=== PATIENT | male | born 1990 | race Caucasian/White ===

== ENCOUNTER 2024-11-08 22:38 | Emergency (ER) | payer SELFPAY ==
[2024-11-08 22:44] VITALS: RESP 18; BMI 16.2
[2024-11-08] MEDS ORDERED: FAMOTIDINE 20 MG/50 ML IVPB 20 MG/50 ML MG IVPB ONE (23:38)
[2024-11-08] MEDS ORDERED: ONDANSETRON 4 MG/2 ML VIAL ONE (23:38)
[2024-11-08] MEDS: FAMOTIDINE 20 MG/50 ML IVPB 20 MG/50 ML MG IVPB ONE (23:49)
[2024-11-08] MEDS: SODIUM CHLORIDE 0.9% 500 ML INFUS.BAG IV ONE (23:49)
[2024-11-08] MEDS: ONDANSETRON 4 MG/2 ML VIAL IVPUSH ONE (23:49)
[2024-11-09 00:02] LABS: ABSOLUTE IMMATURE GRANULOCYTES 0.01 x10^3/uL (0.0-0.031); BASOPHILS # 0.01 x10^3/uL (0.01-0.08); EOSINOPHIL % 0.6 % (0.8-7.0); EOSINOPHILS # 0.03 x10^3/uL (0.04-0.54); MCHC 33.5 g/dl (32.3-36.5); MEAN CELL VOLUME 87.7 fl (79.0-92.2); MEAN PLT VOLUME 9.7 fl (9.4-12.4); MONOCYTE # 0.32 x10^3/uL (0.30-0.82); MONOCYTE % 6.5 % (5.3-12.2); RDW 13.0 % (12.0-15.6)
[2024-11-09 00:24] LABS: GLUCOSE,RANDOM 96.0 mg/dL (74-106); TOT PROT 7.5 g/dl (6.4-8.2)
[2024-11-09 00:25] LABS: CO2 25.0 mmol/L (21-32)
[2024-11-09 00:27] LABS: ALK PHOS 71.0 U/L (40-150)
[2024-11-09 00:29] LABS: SGOT/AST 38.0 U/L (5-34); SGPT/ALT 18.0 U/L (0-55)
[2024-11-09 00:30] LABS: CREATININE 0.83 mg/dL (0.55-1.3)
[2024-11-09 01:35] VITALS: BP 121/65; PULSE 88; TEMP 98.2
== END 2024-11-09 01:37 | disposition home or self-care (01) ==
LOC: JER 22:38
PROC: 3E033GC Introduction of Other Therapeutic Substance into Peripheral Vein, Percutaneous Approach (ICD-10-PCS; principal; 2024-11-08)
PROC: 3E033GC Introduction of Other Therapeutic Substance into Peripheral Vein, Percutaneous Approach (ICD-10-PCS; 2024-11-08)
DX: K29.70 Gastritis, unspecified, without bleeding (principal); K29.80 Duodenitis without bleeding; B96.81 Helicobacter pylori [H. pylori] as the cause of diseases classified elsewhere; R10.13 Epigastric pain; K92.0 Hematemesis; R07.9 Chest pain, unspecified
CPT/HCPCS: 36415; 71045-TC-FY; 80053; 85025; 93005; 93010; 99285-25